=== PATIENT | female | born 1990 | race Caucasian/White ===

== ENCOUNTER 2020-12-26 08:37 | Observation (INO) ==
--- NOTE | 2020-12-26 08:59 | Emergency Department Note ---
Impression & Plan Right flank pain, Hydronephrosis ED Provider Note NAME: DAVE MUJICA AGE: 30 SEX: F : 1990 ARRIVES VIA: Walk-In INFORMANT: Patient, ED PROVIDER(S): Lopez Bhandari MD Chief Complaint: Abdominal pain, nausea vomiting HPI: Patient is a -0-2-0 at 18 weeks who presents due to concern for flank pain. The patient was recently seen on December 24 for similar symptoms. Patient had stable vitals at that time. Patient had normal white count hemoglobin and platelet count. Kidney function was unremarkable. The patient's LFTs and lipase unremarkable. The patient's urinalysis negative for blood or infection. Patient did have a limited ultrasound which did show a single live IUP. No placental abnormalities identified at that time. The patient did also have a renal ultrasound which showed no evidence of hydronephrosis. Bilateral ureteral jets were visualized at that time. Patient states that since this began she has had worsening right-sided flank discomfort. The patient states that she lifted a heavy cup of ice several days ago. The patient denies any trauma to the area. Patient denies any vaginal bleeding or discharge. The patient has felt movement. The patient denies any dysuria, hematuria or blood in the stools. The patient has had a recent bowel movement. The patient has a history of prior appendectomy but still has her gallbladder. The patient has had vomiting x10 this morning. Patient does take a baby aspirin for prophylaxis as the patient has had 2 miscarriages and believes that she did have a negative hypercoagulable work-up in the past. ROS: See HPI for pertinent positives and negatives. A total of 10 systems were reviewed and otherwise negative. Past medical history: See below Surgical history: See below Social history: See below Physical Exam: GENERAL: Wearing glasses and a mask. NAD, non-toxic. EYE EXAM: Normal conjunctiva. PERRL, no anisocoria and EOM's grossly intact w/o pain. NECK: Supple, no nuchal rigidity, no adenopathy, non-tender. No signs of meningismus. LUNGS: Clear to auscultation. Normal chest wall mechanics. HEART: NSR, no MRG. ABDOMEN: Abdomen soft, non-tender, normo-active bowel sounds, no masses, no rebound or guarding. BACK: Right-sided CVA TTP. SKIN: No rashes and no bruising. UPPER EXTREMITIES: Upper extremities are grossly normal. LOWER EXTREMITIES: Grossly normal, no edema. NEURO EXAM: A&O x3, cranial nerves II-XII grossly intact, normal speech, moves all 4 extremities on command w/o issue. Differential diagnoses: Renal colic, UTI, appendicitis, diverticulitis, mesenteric ischemia, aortic pathology, infections, inflammatory bowel disease, PUD, biliary pathology, as well as other pathologies. Course: Patient was seen and evaluated the bedside. Full history physical exam was performed. Imaging Studies: See below Cardiac monitoring: An order was placed for continuous cardiac monitoring. The monitor shows a rate of 93 with sinus rhythm. Procedures: Limited Point of Care OB Ultrasound performed by me: Indication: Flank pain Findings: Limited transabdominal study shows a viable IUP with a HR of 130s and positive movement. Likely transverse lie of the fetus. Placenta appears on the posterior aspect of the uterus. Impression: Age expected findings. MDM: Patient did present with concern for worsening flank pain. The patient did have bladder completed along with a collateral ultrasound. The patient does have an increase in white count to 16 with a left shift. The patient's kidney function is unremarkable. Urinalysis does show blood with whites and bacteria but does have numerous numerous epithelial cells. The patient was in such significant rate discomfort she did require narcotic medication. Given this with the associated gallbladder ultrasound which only showed gallbladder polyps without stones but did show right-sided renal fullness I did discuss getting a CAT scan of the abdomen pelvis with the patient. The patient is amenable to getting the CAT scan. Patient did receive Rocephin given that she is tracely positive on her UA but the patient does have numerous skin cells. The patient's CT abdomen pelvis does show some hydronephrosis likely secondary to her her gravid uterus. No obvious ureteral stones. Patient was given several rounds of additional pain medication. The patient does have an oxy allergy and is unable to take medications beyond lidocaine patch and Tylenol at home. NSAIDs contraindicated in . Given this and the patient's persistent pain believe the patient would benefit from observation and pain control. I did speak with Dr. Childers with [facility] and the patient was admitted due to intractable flank pain. Past Med/Surg History Medical History Infertility Surgical History History of appendectomy History of D&C History of tonsillectomy Family History Other No family history of adverse response to anesthesia Social History Smoking Status: Never smoker Second Hand Exposure: No; Hx Alcohol Use: No Hx Substance Use: No Preferred Language: Latvian Communication Ability: Effective Industrial Economist Required: No Beliefs That Will Affect Care: None Current Living Situation: Spouse Feels Safe at Home: Yes Assistive Devices: Contacts Allergies Allergies Allergy/AdvReac Type Severity Reaction Status Date / Time latex Allergy Intermediate Hives Verified 12/26/20 10:03 oxycodone [From Percocet] Allergy Intermediate Hives Verified 12/26/20 10:03 nickel Allergy Mild Rash Verified 12/26/20 10:03 Home Meds Home Medications Medication Instructions Recorded Confirmed PNV,calcium 28-igzn-maihz acid 1 tab PO DAILY 10/11/20 12/26/20 [M-Rosy Plus] aspirin [Aspir-Low] 81 mg PO DAILY 10/11/20 12/26/20 Results & Data (ED) Vital Signs Vital Signs - 24 hr 12/26/20 08:45 12/26/20 10:54 12/26/20 12:00 Temperature 36.5 C Temperature Source Temporal Artery Scan Pulse Rate 93 H Pulse Rate [Finger] 90 82 Respiratory Rate 18 16 16 Respiratory Effort / Characteristics Non-Labored Respiratory Depth Normal Blood Pressure 112/68 Blood Pressure [Right Arm] 116/66 119/60 Blood Pressure Mean 82 Blood Pressure Mean [Right Arm] 82 79 Blood Pressure Position Sitting Blood Pressure Position [Right Arm] Sitting Sitting Pulse Oximetry 99 100 100 Oxygen Delivery Method Room Air Room Air Room Air Sepsis Recent Fever Within 48 Hours No Sepsis New/Unexplained Change in Mental Status No Sepsis Action Taken by Nursing No Action Required Home Medications Current Medication List: was personally reviewed by me Laboratory Data Attestation: I reviewed the patient's lab results. Result diagrams: 12/26/20 09:05 12/26/20 09:05 Lab Results 12/26/20 12/26/20 12/26/20 Range/Units 09:05 09:05 09:05 WBC 15.98 H (4.8-10.8) K/uL RBC 4.29 (4.2-5.4) M/uL Hgb 13.8 (12.0-16.0) g/dL Hct 40.1 (37-47) % MCV 93.5 (80-100) fL MCH 32.2 (25-34) pg MCHC 34.4 (32-36) g/dL RDW Std Deviation 43.0 (36.4-46.3) fL RDW Coeff of Thea 12.7 (11.5-14.5) % Plt Count 252 (130-400) K/uL MPV 9.2 (7.4-10.4) fL Immature Gran % (Auto) 0.3 % Neut % (Auto) 90.8 % Lymph % (Auto) 5.9 % [place] % (Auto) 3.0 % Eos % (Auto) 0.0 % Baso % (Auto) 0.0 % Neut # (Auto) 14.51 H (1.4-6.5) K/uL Lymph # (Auto) 0.95 L (1.2-3.4) K/uL [place] # (Auto) 0.48 (0.11-0.59) K/uL Eos # (Auto) 0.00 (0-0.5) K/uL Baso # (Auto) 0.00 (0-0.2) K/uL Immature Gran # (Auto) 0.04 H (0.00-0.02) K/uL Sodium 137 (136-145) mmol/L Potassium 3.7 (3.5-5.1) mmol/L Chloride 106 (98-107) mmol/L Carbon Dioxide 26 (21-32) mmol/L Anion Gap 5.0 (3-11) BUN 10 (7-18) mg/dl Creatinine 0.51 L (0.6-1.2) mg/dl Est Cr Clr Drug Dosing 152.7 ml/min Est GFR ( Amer) 149.6 ml/min Est GFR (Non-Af Amer) 129.0 ml/min BUN/Creatinine Ratio 19.3 (10-20) Glucose 98 (70-99) mg/dl Calcium 9.2 (8.5-10.1) mg/dl Magnesium 1.9 (1.8-2.4) mg/dl Total Bilirubin 0.3 (0.2-1) mg/dl AST 16 (15-37) U/L ALT 22 (12-78) U/L Alkaline Phosphatase 37 L (45-117) U/L Total Protein 7.1 (6.4-8.2) gm/dl Albumin 3.4 (3.4-5.0) gm/dl Globulin 3.7 (2.5-4.0) gm/dl Albumin/Globulin Ratio 0.9 (0.9-2) Lipase 96 (73-393) U/L Urine Color Yellow Urine Appearance Clear (Clear) Urine pH 5.5 (4.5-7.5) Ur Specific [place] 1.016 (1.000-1.030) Urine Protein Negative (Negative) Urine Glucose (UA) Negative (Negative) Urine Ketones Trace H (Negative) Urine Blood Trace H (Negative) Urine Nitrite Negative (Negative) Urine Bilirubin Negative (Negative) Urine Urobilinogen Negative (Negative) Ur Leukocyte Esterase Negative (Negative) Urine WBC (Auto) 5-10 H (0-5) /hpf Urine RBC (Auto) 0-4 (0-4) /hpf U Hyaline Cast (Auto) 1-5 (0-5) /lpf U Epithel Cells (Auto) >30 H (0-5) /lpf Urine Bacteria (Auto) 1+ H (Negative) Administered Medications Sodium Chloride (Nss 1000ml) 500 mls @ 999 mls/hr IV .Q31M ONE Stop: 12/26/20 13:04 Last Admin: 12/26/20 12:41 Dose: 999 mls/hr Documented by: [id number] Discontinued Medications Fentanyl Citrate (Fentanyl Citrate 100 Mcg/2 Ml Vial) 50 mcg IV NOW STA Stop: 12/26/20 09:58 Last Admin: 12/26/20 10:00 Dose: 50 mcg Documented by: [id number] Fentanyl Citrate (Fentanyl Citrate 100 Mcg/2 Ml Vial) 50 mcg IV NOW STA Stop: 12/26/20 11:03 Last Admin: 12/26/20 11:09 Dose: 50 mcg Documented by: [id number] Fentanyl Citrate (Fentanyl Citrate 100 Mcg/2 Ml Vial) 50 mcg IV NOW STA Stop: 12/26/20 11:47 Last Admin: 12/26/20 11:55 Dose: 50 mcg Documented by: [id number] Fentanyl Citrate (Fentanyl Citrate 100 Mcg/2 Ml Vial) 75 mcg IV NOW STA Stop: 12/26/20 12:37 Last Admin: 12/26/20 12:40 Dose: 75 mcg Documented by: [id number] Sodium Chloride (Nss 1000ml) 1,000 mls @ 999 mls/hr IV .Q1H1M STA Stop: 12/26/20 10:08 Last Infusion: 12/26/20 10:16 Dose: 0 mls/hr Documented by: [id number] Admin: 12/26/20 09:15 Dose: 999 mls/hr Documented by: [id number] Acetaminophen (Ofirmev) 1,000 mg in 100 mls @ 400 mls/hr IV NOW STA Stop: 12/26/20 09:22 Last Infusion: 12/26/20 09:31 Dose: 0 mls/hr Documented by: [id number] Admin: 12/26/20 09:15 Dose: 400 mls/hr Documented by: [id number] Ceftriaxone Sodium (Rocephin) 2,000 mg in 70 mls @ 140 mls/hr IV NOW STA Stop: 12/26/20 11:21 Last Infusion: 12/26/20 11:39 Dose: 0 mls/hr Documented by: [id number] Admin: 12/26/20 11:09 Dose: 140 mls/hr Documented by: [id number] Ioversol (Optiray 320 150ml) 90 ml IV ONCE ONE Stop: 12/26/20 10:20 Last Admin: 12/26/20 10:22 Dose: 90 ml Documented by: [id number] Lidocaine (Lidocaine 5% 1 Patch) 1 patch TD NOW STA Stop: 12/26/20 10:58 Last Admin: 12/26/20 11:09 Dose: 1 patch Documented by: [id number] Ondansetron HCl (Ondansetron Inj 2 Mg/Ml 2 Ml Vial) 4 mg IV NOW STA Stop: 12/26/20 09:09 Last Admin: 12/26/20 09:15 Dose: 4 mg Documented by: [id number] Imaging Data Radiologist's Impression: Gallbladder Ultrasound 12/26/20 09:08 US gallbladder CLINICAL HISTORY: Right-sided abdominal pain COMPARISON STUDY: CT scan dated 03/11/2016, renal ultrasound dated 12/24/2020 FINDINGS: The pancreas appears sonographically normal. The liver appears sonographically normal. No shadowing gallbladder calculi are visualized. There are 2 echogenic nonmobile nonshadowing foci within the gallbladder likely representing polyps. The common bile duct measures 5 mm. There is mild fullness the right renal collecting system. There is borderline increased renal cortical echogenicity. IMPRESSION: 1. 2 small gallbladder polyps are suspected, the largest of which measures 5 mm 2. Ultrasonographically normal liver and pancreas. No ductal dilatation. 3. Mild fullness of the right renal collecting system. ACT 112: Negative or not required by law. Electronically signed by: Robin Gaxiola M.D. 12/26/2020 10:01 AM Abdomen/Pelvis CT 12/26/20 10:[address] WITH IV CONTRAST CT DOSE: 495.05 mGycm HISTORY: Acute right-sided flank pain with leukocytosis and . R flank pain, , WBC 16 TECHNIQUE: Multiaxial CT images of the abdomen and pelvis were performed following the IV administration of 90 cc of Optiray, A dose lowering technique was utilized adhering to the principles of ALARA. COMPARISON STUDY: Right upper quadrant abdominal ultrasound of same day, CT abdomen and pelvis 03/11/2016 FINDINGS: Clear lung bases. Trace pleural effusions. There is no pneumatosis or pneumoperitoneum. 1.3 cm benign-appearing cyst of the inferior spleen has decreased in size from comparison. Unremarkable pancreas, adrenal glands, gallbladder and liver. Patency of the hepatic and portal veins. Unremarkable left kidney. Slightly delayed right-sided nephrogram with mild to moderate hydroureteronephrosis. Mild perinephric and periureteral stranding. No renal or ureteral calculi identified. There is narrowing of the right ureter as it crosses between the right external iliac artery and the enlarged gravid uterus, image 263. The ureter distal to this site appears normal in caliber. Posterior positioning of the placenta. Breech positioning of the intrauterine fetus. Gravid uterus, mass effect upon the urinary bladder. No adnexal mass lesion. Aorta and IVC are unremarkable. There is no adenopathy. No bowel obstruction or bowel wall thickening. Appendectomy. Unremarkable soft tissues and breast parenchyma. No acute fracture. IMPRESSION: 1. Mild to moderate right-sided hydroureteronephrosis with delayed nephrogram likely secondary to mass effect of the enlarged gravid uterus. The right ureter is narrowed as it courses between the uterus and proximal right external iliac artery. Findings should be correlated with urinalysis to exclude infection. 2. No renal or ureteral calculi identified. 3. No bowel obstruction or bowel wall thickening. 4. Trace pleural effusions. 5. Appendectomy. ACT 112: Negative or not required by law. The above report was generated using voice recognition software. It may contain grammatical, syntax or spelling errors. Electronically signed by: Yuri Oconnor M.D. 12/26/2020 10:49 AM Discharge Plan Visit Data Chief Complaint: Flank Pain Stated Complaint: 18 WEEKS , R FLANK PAIN, ABDOMINAL PAIN ED Provider: Lopez Bhandari Discharge Problem: Right flank pain, Hydronephrosis Forms Stand Alone Forms: [facility] [place] Prescriptions Prescriptions: No Action aspirin [Aspir-Low] 81 mg Tablet,Delayed Release (Dr/Ec) 81 mg PO DAILY RF: 0 M-Rosy Plus 27 mg iron- 1 mg tablet 1 tab PO DAILY RF: 0 Discharge Problem: Hydronephrosis Qualifiers: Hydronephrosis type: unspecified Qualified Code(s): N13.30 - Unspecified hydronephrosis
[2020-12-26] MEDS ORDERED: ONDANSETRON INJ 2 MG/ML 2 ML VIAL IV STA (09:08)
[2020-12-26] MEDS ORDERED: SODIUM CHLORIDE 0.9% 1000ML 1,000 ML IV STA (09:08)
[2020-12-26] MEDS ORDERED: ACETAMINOPHEN 1,000 MG/100 ML VIAL IV STA (09:08)
[2020-12-26 09:19] LABS: Hematocrit (blood only) 40.1 % (37-47); Hemoglobin 13.8 g/dL (12.0-16.0); Immature Granulocytes # (auto) 0.04 K/uL (0.00-0.02); Immature Granulocytes % (auto) 0.3 %; Lymphocytes # (auto) 0.95 K/uL (1.2-3.4); Lymphocytes % (auto) 5.9 %; Mean Corpuscular Hemoglobin 32.2 pg (25-34); Mean Corpuscular Hgb Conc 34.4 g/dL (32-36); Mean Corpuscular Volume 93.5 fL (80-100); Mean Platelet Volume 9.2 fL (7.4-10.4); Monocytes # (auto) 0.48 K/uL (0.11-0.59); Neutrophils # (auto) 14.51 K/uL (1.4-6.5); Neutrophils % (auto) 90.8 %; Platelet Count 252 K/uL (130-400); RDW Coefficient of Variation 12.7 % (11.5-14.5); Red Blood Count 4.29 M/uL (4.2-5.4); White Blood Count 15.98 K/uL (4.8-10.8)
[2020-12-26 09:21] LABS: Appearance Urine Clear (Clear); Bacteria Urine Automated 1+ (Negative); Bilirubin Urine Negative (Negative); Blood Urine Trace (Negative); Color Urine Yellow; Epithelial Cell Urine Auto >30 /lpf (0-5); Glucose Urine UA Negative (Negative); Ketones Urine Trace (Negative); Leukocyte Esterase Urine Negative (Negative); Nitrite Urine Negative (Negative); Protein Urine Negative (Negative); RBC Urine Automated 0-4 /hpf (0-4); Specific Gravity Urine 1.016 (1.000-1.030); Urobilinogen Urine Negative (Negative); pH Urine 5.5 (4.5-7.5)
[2020-12-26 09:38] LABS: Albumin Level 3.4 gm/dl (3.4-5.0); BUN Creatinine Ratio 19.3 (10-20); Calcium 9.2 mg/dl (8.5-10.1); Creatinine Clr Calc Pharmacy 152.7 ml/min; Est GFR (African American) 149.6 ml/min; Magnesium 1.9 mg/dl (1.8-2.4); Potassium 3.7 mmol/L (3.5-5.1)
[2020-12-26 09:41] LABS: Albumin Globulin Ratio 0.9 (0.9-2); Bilirubin,Total 0.3 mg/dl (0.2-1); Globulin 3.7 gm/dl (2.5-4.0); Total Protein 7.1 gm/dl (6.4-8.2)
[2020-12-26] MEDS ORDERED: fentaNYL citrate 100 MCG/2 ML VIAL IV STA ×4 (09:57→12:36)
--- NOTE | 2020-12-26 10:02 | Ultrasound Report ---
US gallbladder CLINICAL HISTORY: Right-sided abdominal pain COMPARISON STUDY: CT scan dated 03/11/2016, renal ultrasound dated 12/24/2020 FINDINGS: The pancreas appears sonographically normal. The liver appears sonographically normal. No s hadowing gallbladder calculi are visualized. There are 2 echogenic nonmobile nonshadowing foci within the gallbladder likely representing polyps. The common bile duct measures 5 mm. There is mild fullness the right renal collecting system. There is borderline increased renal cortica l echogenicity. IMPRESSION: 1. 2 small gallbladder polyps are suspected, the largest of which measures 5 mm 2. Ultrasonographically normal liver and pancreas. No ductal dilatation. 3. Mild fullness of the right renal collecting system. ACT 112: Negative or not required by law. Electronically signed by: Robin Gaxiola M.D. 12/26/2020 10:01 AM
[2020-12-26] MEDS ORDERED: OPTIRAY 320 150ml IV ONE (10:19)
--- NOTE | 2020-12-26 10:50 | CT Scan Report ---
ABDOMEN AND PELVIS CT WITH IV CONTRAST CT DOSE: 495.05 mGycm HISTORY: Acute right-sided flank pain with leukocytosis and . R flank pain, , WBC 1 6 TECHNIQUE: Multiaxial CT images of the abdomen and pelvis were performed following the IV administrat ion of 90 cc of Optiray, A dose lowering technique was utilized adhering to the principles of ALARA. COMPARISON STUDY: Right upper quadrant abdominal ultrasound of same day, CT abdomen and pelvis 016 FINDINGS: Clear lung bases. Trace pleural effusions. There is no pneumatosis or pneumoperitoneum. 1.3 cm benign-appearing cyst of the inferior spleen has decreased in size from comparison. Unremarkable pancreas, adrenal glands, gallbladder and liver. Patency of the hepatic and portal veins. Unremarkable left kidney. Slightly delayed right-sided nephrogram with mild to moderate hydroureteron ephrosis. Mild perinephric and periureteral stranding. No renal or ureteral calculi identified. There is narrowing of the right ureter as it crosses between the right external iliac artery and the enlar ged gravid uterus, image 263. The ureter distal to this site appears normal in caliber. Posterior pos itioning of the placenta. Breech positioning of the intrauterine fetus. Gravid uterus, mass effect up on the urinary bladder. No adnexal mass lesion. Aorta and IVC are unremarkable. There is no adenopath y. No bowel obstruction or bowel wall thickening. Appendectomy. Unremarkable soft tissues and breast par enchyma. No acute fracture. IMPRESSION: 1. Mild to moderate right-sided hydroureteronephrosis with delayed nephrogram likely secondary to mas s effect of the enlarged gravid uterus. The right ureter is narrowed as it courses between the uterus and proximal right external iliac artery. Findings should be correlated with urinalysis to exclude i nfection. 2. No renal or ureteral calculi identified. 3. No bowel obstruction or bowel wall thickening. 4. Trace pleural effusions. 5. Appendectomy. ACT 112: Negative or not required by law. The above report was generated using voice recognition software. It may contain grammatical, syntax o r spelling errors. Electronically signed by: Yuri Oconnor M.D. 12/26/2020 10:49 AM
[2020-12-26] MEDS ORDERED: cefTRIAXone SODIUM 2,000 MG/70 ML BAG IV STA (10:52)
[2020-12-26] MEDS ORDERED: LIDOCAINE 5% 1 PATCH TD STA (10:57)
[2020-12-26] MEDS ORDERED: SODIUM CHLORIDE 0.9% 1000ML 500 ML IV ONE (12:34)
[2020-12-26] MEDS: MoRPHine SULFATE 2 MG/ML CARP IV PRN ×2 (16:09→17:44)
[2020-12-26] MEDS: LACTATED RINGER'S 1,000 ML IV PRN (16:12)
--- NOTE | 2020-12-26 16:15 | History & Physical Report ---
Date of Service December 26, 2020 Assessment & Plan (1) Right flank pain: (2) Currently : (3) Hydronephrosis: Admission and Anticipated Discharge Date Admission Date: December 26, 2020 History of Present Illness Chief Complaint: right flank pasin Primary Care Provider: JOSE PCP 30 F P0020 at 18 weeks presents to the ER for the second time in 2 days with right sided flank pain accompanied by nausea and vomiting. She states pain started Thursday after lifting heavy load of ice. She denies any urinary symptoms. No frequency, hematuria or dysuria. No history of kidney stones or gallstones. No vaginal bleeding or cramps. No problems with the to date. She had workup [address] and ultrasound of GB and . Some mild right sided hydronephrosis is noted. Allergies Allergy/AdvReac Type Severity Reaction Status Date / Time latex Allergy Intermediate Hives Verified 12/26/20 16:14 oxycodone [From Percocet] Allergy Intermediate Hives Verified 12/26/20 16:14 nickel Allergy Mild Rash Verified 12/26/20 16:14 Home Medications Medication Instructions Recorded Confirmed Type PNV,calcium 39-avbs-gksxl acid 1 tab PO DAILY 10/11/20 12/26/20 History [M- Plus] aspirin [Aspir-Low] 81 mg PO DAILY 10/11/20 12/26/20 History Patient History Medical History Infertility Surgical History History of appendectomy History of D&C History of tonsillectomy Family History Other No family history of adverse response to anesthesia Social History Smoking Status: Never smoker Second Hand Exposure: No; Hx Alcohol Use: No Hx Substance Use: No Preferred Language: Hungarian Communication Ability: Effective Grid Inspector Required: No Beliefs That Will Affect Care: None Current Living Situation: Spouse Feels Safe at Home: Yes Assistive Devices: Contacts OB History 2 prior miscarriages. Patient is on ASA 81 mg daily Review of Systems All systems reviewed & are unremarkable except as noted in HPI & below Physical Exam Constitutional: WD/WN, vitals as above well nourished, + acute distress and average body habitus Eyes: PERRL, conjunctivae normal, anicteric sclerae ENMT: external ear and nose normal, oropharynx normal Respiratory: normal respiratory effort Cardiovascular: RRR, no murmur, no edema Rate/Rhythm: regular rate Gastrointestinal (Abdomen): Inspection/Auscultation: abdomen normal to inspection Percussion/Palpation: abdomen soft Skin: no rashes, warm and dry Neurologic: patellar DTR's 2+ bilat, sensation intact Psychiatric: A+Ox3, euthymic affect Genitourinary: OB Exam Abdomen: + heart tones Results & Data ([facility]) Vital Signs (Past 12 Hours) Vital Signs Temp Pulse Pulse Resp BP BP Pulse Ox 12/26/20 15:33 89 16 119/68 98 12/26/20 14:51 79 16 117/69 100 12/26/20 12:45 86 16 99 12/26/20 12:00 82 16 119/60 100 12/26/20 10:54 90 16 116/66 100 12/26/20 08:45 36.5 C 93 H 18 112/68 99 Laboratory Results Laboratory Results - last 72 hr 12/26/20 12/26/20 12/26/20 09:05 09:05 09:05 WBC 15.98 H RBC 4.29 Hgb 13.8 Hct 40.1 MCV 93.5 MCH 32.2 MCHC 34.4 RDW Std Deviation 43.0 RDW Coeff of Thea 12.7 Plt Count 252 MPV 9.2 Immature Gran % (Auto) 0.3 Neut % (Auto) 90.8 Lymph % (Auto) 5.9 [place] % (Auto) 3.0 Eos % (Auto) 0.0 Baso % (Auto) 0.0 Neut # (Auto) 14.51 H Lymph # (Auto) 0.95 L [place] # (Auto) 0.48 Eos # (Auto) 0.00 Baso # (Auto) 0.00 Immature Gran # (Auto) 0.04 H Sodium 137 Potassium 3.7 Chloride 106 Carbon Dioxide 26 Anion Gap 5.0 BUN 10 Creatinine 0.51 L Est Cr Clr Drug Dosing 152.7 Est GFR ( Amer) 149.6 Est GFR (Non-Af Amer) 129.0 BUN/Creatinine Ratio 19.3 Glucose 98 Calcium 9.2 Magnesium 1.9 Total Bilirubin 0.3 AST 16 ALT 22 Alkaline Phosphatase 37 L Total Protein 7.1 Albumin 3.4 Globulin 3.7 Albumin/Globulin Ratio 0.9 Lipase 96 Urine Color Yellow Urine Appearance Clear Urine pH 5.5 Ur Specific [place] 1.016 Urine Protein Negative Urine Glucose (UA) Negative Urine Ketones Trace H Urine Blood Trace H Urine Nitrite Negative Urine Bilirubin Negative Urine Urobilinogen Negative Ur Leukocyte Esterase Negative Urine WBC (Auto) 5-10 H Urine RBC (Auto) 0-4 U Hyaline Cast (Auto) 1-5 U Epithel Cells (Auto) >30 H Urine Bacteria (Auto) 1+ H COVID-19 Eval Order SARS-CoV-2 (PCR) 12/26/20 12/26/20 13:28 13:28 WBC RBC Hgb Hct MCV MCH MCHC RDW Std Deviation RDW Coeff of Thea Plt Count MPV Immature Gran % (Auto) Neut % (Auto) Lymph % (Auto) [place] % (Auto) Eos % (Auto) Baso % (Auto) Neut # (Auto) Lymph # (Auto) [place] # (Auto) Eos # (Auto) Baso # (Auto) Immature Gran # (Auto) Sodium Potassium Chloride Carbon Dioxide Anion Gap BUN Creatinine Est Cr Clr Drug Dosing Est GFR ( Amer) Est GFR (Non-Af Amer) BUN/Creatinine Ratio Glucose Calcium Magnesium Total Bilirubin AST ALT Alkaline Phosphatase Total Protein Albumin Globulin Albumin/Globulin Ratio Lipase Urine Color Urine Appearance Urine pH Ur Specific [place] Urine Protein Urine Glucose (UA) Urine Ketones Urine Blood Urine Nitrite Urine Bilirubin Urine Urobilinogen Ur Leukocyte Esterase Urine WBC (Auto) Urine RBC (Auto) U Hyaline Cast (Auto) U Epithel Cells (Auto) Urine Bacteria (Auto) COVID-19 Eval Order Covid19 at [facility] SARS-CoV-2 (PCR) NEGATIVE Code Status & VTE Plan VTE Prophylaxis Plan VTE Prophylaxis will be ordered: No Monitoring External Monitor ultrasound confirms viability (1) Currently Weeks of gestation: 14 weeks Qualified Code(s): Z3A.14 - 14 weeks gestation of (2) Hydronephrosis Hydronephrosis type: unspecified Qualified Code(s): N13.30 - Unspecified hydronephrosis
[2020-12-26] MEDS: ACETAMINOPHEN 1,000 MG/100 ML VIAL IV PRN (17:04)
[2020-12-26] MEDS ORDERED: MoRPHine SULFATE 2 MG/ML CARP IV STA (17:59)
[2020-12-26] MEDS ORDERED: NALOXONE HCL 0.4 MG/1 ML VIAL/CARP IV PRN (18:20)
[2020-12-26] MEDS: AMPICILLIN 2,000 MG in SODIUM CHLOR 0.9% AD-VAN 100 ML IV SCH (18:20)
[2020-12-26 18:27] LABS: Appearance Urine Clear (Clear); Bacteria Urine Automated Negative (Negative); Bilirubin Urine Negative (Negative); Blood Urine 2+ (Negative); Color Urine Yellow; Epithelial Cell Urine Auto >30 /lpf (0-5); Glucose Urine UA Negative (Negative); Ketones Urine 4+ (Negative); Leukocyte Esterase Urine Negative (Negative); Nitrite Urine Negative (Negative); Protein Urine Negative (Negative); Specific Gravity Urine 1.015 (1.000-1.030); Urobilinogen Urine Negative (Negative)
[2020-12-26] MEDS ORDERED: MoRPHine SULFATE PCA 30 MG/30 ML IV SCH (18:30)
[2020-12-26] MEDS ORDERED: SODIUM CHLORIDE 0.9% 1000ML 1,000 ML IV SCH (18:30)
[2020-12-26 18:39] LABS: Cast Urine Automated 0 /lpf (0-5); Renal Epithelial Cells Urine 0-5 /lpf (0-5)
--- NOTE | 2020-12-26 19:23 | History and Physical Report ---
DATE OF ADMISSION: 12/26/2020 CHIEF COMPLAINT: Right-sided flank pain, intrauterine 19 weeks' gestation. HISTORY OF PRESENT ILLNESS: The patient is a 30-year-old 3, para 0. She has had 2 spontaneous ABs. She is in good general health. She is presently on vitamins and baby aspirin, which she has taken earlier in her to prevent miscarriage. STATES SHE IS ALLERGIC TO PERCOCET, WHICH GIVES HER A RASH AND SHE ALSO STATES SHE IS ALLERGIC TO LATEX. She was doing well until Sunday 12/24 where she showed up with some mild right-sided flank pain. She had no loss of appetite. She was seen in the Emergency Room. She was ultrasounded and she was basically told that there was no significant problem and was sent home, then over the ensuing days, her pain began to worsen. Finally, the night prior to admission, she was unable to sleep and she started having some vomiting with the pain. She was seen in the Emergency Room. White cell count and CAT scan were done. CAT scan was unremarkable. White cell count was 15,000. ALLERGIES: PERCOCET AND LATEX. PAST SURGICAL HISTORY: Status post appendectomy, status post wisdom teeth removal, status post D and C. SOCIAL HISTORY: No smoking, no alcohol intake. Works at the [employer]. FAMILY HISTORY: Mom is 52, in good health. Father 52, in good health. Two brothers and one sister in good health. REVIEW OF SYSTEMS: HEAD: No symptoms of frequent or severe headaches. EYES: No symptoms of blurred vision or double vision. EARS: No symptoms of frequent ear infections. PHYSICAL EXAMINATION: GENERAL: A well-developed, well-nourished 30-year-old white female in a fair amount of distress. EYES: Conjunctivae are pink. Sclerae white, no evidence of jaundice. HEART: Had regular rhythm. LUNGS: Clear to auscultation and percussion. NECK: Supple. Trachea midline. Thyroid is not enlarged. FLANKS: She had acute right-sided flank pain. She did not have any uterine or suprapubic pain. MUSCULOSKELETAL: No calf tenderness. IMPRESSIONS OF THIS CASE: Status post appendectomy, status post dilatation and curettage, status post wisdom teeth removal, intrauterine , 19 weeks' gestation, suspected acute pyelonephritis.
[2020-12-26] MEDS: MoRPHine SULFATE PCA 30 MG/30 ML IV PRN (19:30)
[2020-12-26] MEDS: ONDANSETRON INJ 2 MG/ML 2 ML VIAL IV PRN (21:46)
[2020-12-27] MEDS: AMPICILLIN 2,000 MG in SODIUM CHLOR 0.9% AD-VAN 100 ML IV SCH ×4 (00:23→18:13)
[2020-12-27] MEDS: ACETAMINOPHEN 1,000 MG/100 ML VIAL IV PRN ×3 (01:03→23:47)
[2020-12-27] MEDS: LACTATED RINGER'S 1,000 ML IV PRN ×3 (01:07→18:54)
[2020-12-27] MEDS: MoRPHine SULFATE PCA 30 MG/30 ML IV PRN ×2 (04:12→16:11)
[2020-12-27] MEDS: ONDANSETRON INJ 2 MG/ML 2 ML VIAL IV PRN ×2 (07:22→16:22)
--- NOTE | 2020-12-27 09:36 | Obstetrical Progress Note ---
Date of Service December 27, 2020 Assessment & Plan Admission and Anticipated Discharge Date Admission Date: December 26, 2020 Physical Exam Physical Exam: abdomen soft and non tender no calf tenderness pain has decreased patient still has dysuria will repeat cbc and diff Results & Data ([facility]) Vital Signs (Past 12 Hours) Vital Signs Temp Pulse Pulse Resp BP Pulse Ox 12/27/20 07:25 36.4 C L 81 15 102/61 97 12/27/20 04:10 36.5 C 88 15 109/63 96 12/26/20 23:05 36.7 C 80 18 110/68 97 12/26/20 22:00 36.9 C 86 14 112/69 97
[2020-12-27] MEDS: diphenhydrAMINE 50 MG/ML VIAL IV PRN ×2 (10:15→18:18)
[2020-12-27 10:36] LABS: Basophils # (auto) 0.01 K/uL (0-0.2); Basophils % (auto) 0.1 %; Eosinophils # (auto) 0.01 K/uL (0-0.5); Eosinophils % (auto) 0.1 %; Hematocrit (blood only) 31.8 % (37-47); Hemoglobin 10.7 g/dL (12.0-16.0); Immature Granulocytes # (auto) 0.04 K/uL (0.00-0.02); Immature Granulocytes % (auto) 0.4 %; Lymphocytes # (auto) 1.18 K/uL (1.2-3.4); Lymphocytes % (auto) 10.4 %; Mean Corpuscular Hgb Conc 33.6 g/dL (32-36); Mean Corpuscular Volume 95.2 fL (80-100); Monocytes # (auto) 0.72 K/uL (0.11-0.59); Monocytes % (auto) 6.3 %; Neutrophils # (auto) 9.41 K/uL (1.4-6.5); Neutrophils % (auto) 82.7 %; Platelet Count 196 K/uL (130-400); RDW Coefficient of Variation 12.9 % (11.5-14.5); RDW Standard Deviation 44.8 fL (36.4-46.3); Red Blood Count 3.34 M/uL (4.2-5.4); White Blood Count 11.37 K/uL (4.8-10.8)
[2020-12-28] MEDS: AMPICILLIN 2,000 MG in SODIUM CHLOR 0.9% AD-VAN 100 ML IV SCH ×5 (00:17→23:45)
[2020-12-28] MEDS: LACTATED RINGER'S 1,000 ML IV PRN ×3 (03:11→19:53)
[2020-12-28] MEDS: diphenhydrAMINE 50 MG/ML VIAL IV PRN (06:34)
[2020-12-28] MEDS: MoRPHine SULFATE PCA 30 MG/30 ML IV PRN (07:04)
[2020-12-28] MEDS: ACETAMINOPHEN 1,000 MG/100 ML VIAL IV PRN (07:52)
--- NOTE | 2020-12-28 08:52 | Obstetrical Progress Note ---
Date of Service December 28, 2020 Assessment & Plan Admission and Anticipated Discharge Date Admission Date: December 26, 2020 Physical Exam Physical Exam: patient still has right flank pain no calf tenderness limited ambulation Results & Data ([facility]) Vital Signs (Past 12 Hours) Vital Signs Temp Pulse Resp BP Pulse Ox 12/28/20 07:50 36.7 C 86 18 111/67 96 12/28/20 03:10 36.9 C 90 18 101/62 95 12/28/20 00:00 36.8 C 93 H 20 108/67 97
[2020-12-28 09:17] LABS: Basophils # (auto) 0.01 K/uL (0-0.2); Basophils % (auto) 0.1 %; Eosinophils # (auto) 0.02 K/uL (0-0.5); Eosinophils % (auto) 0.2 %; Hematocrit (blood only) 30.1 % (37-47); Hemoglobin 10.1 g/dL (12.0-16.0); Immature Granulocytes # (auto) 0.03 K/uL (0.00-0.02); Immature Granulocytes % (auto) 0.3 %; Lymphocytes # (auto) 1.18 K/uL (1.2-3.4); Lymphocytes % (auto) 12.6 %; Mean Corpuscular Hemoglobin 31.7 pg (25-34); Mean Corpuscular Hgb Conc 33.6 g/dL (32-36); Mean Corpuscular Volume 94.4 fL (80-100); Mean Platelet Volume 8.9 fL (7.4-10.4); Monocytes # (auto) 0.79 K/uL (0.11-0.59); Monocytes % (auto) 8.4 %; Neutrophils # (auto) 7.35 K/uL (1.4-6.5); Neutrophils % (auto) 78.4 %; Platelet Count 160 K/uL (130-400); RDW Standard Deviation 45.1 fL (36.4-46.3); Red Blood Count 3.19 M/uL (4.2-5.4); White Blood Count 9.38 K/uL (4.8-10.8)
[2020-12-28] MEDS: MAGNESIUM HYDROXIDE SUSP 30 ML UDC PO PRN ×3 (09:27→23:44)
[2020-12-28] MEDS: DOCUSATE SODIUM 100 MG CAP PO SCH ×2 (09:27→21:10)
[2020-12-28] MEDS: ASPIRIN 81 MG ECTAB PO SCH (09:27)
[2020-12-28] MEDS: PRENATAL VITAMIN 1 TAB PO SCH (09:27)
[2020-12-29] MEDS: LACTATED RINGER'S 1,000 ML IV PRN (03:40)
[2020-12-29] MEDS: MAGNESIUM HYDROXIDE SUSP 30 ML UDC PO PRN (06:00)
[2020-12-29] MEDS: AMPICILLIN 2,000 MG in SODIUM CHLOR 0.9% AD-VAN 100 ML IV SCH ×2 (06:01→11:21)
[2020-12-29] MEDS: ASPIRIN 81 MG ECTAB PO SCH (08:40)
[2020-12-29] MEDS: PRENATAL VITAMIN 1 TAB PO SCH (08:40)
[2020-12-29] MEDS: DOCUSATE SODIUM 100 MG CAP PO SCH (08:40)
--- NOTE | 2020-12-29 10:51 | Obstetrical Progress Note ---
Date of Service December 29, 2020 Assessment & Plan Admission and Anticipated Discharge Date Admission Date: December 28, 2020 Physical Exam Physical Exam: flank pain has resolved no calf tenderness ambulating well hgb 10.3 Results & Data ([facility]) Vital Signs (Past 12 Hours) Vital Signs Temp Pulse Pulse Resp BP Pulse Ox 12/29/20 07:45 36.8 C 86 18 111/69 96 12/29/20 03:40 36.7 C 78 16 108/68 95 12/28/20 23:50 36.7 C 83 17 106/68 97
--- NOTE | 2020-12-29 22:17 | Discharge Summary (DS) ---
Ms. Erickson is a patient of mine being followed for care and delivery. She is about 18 plus weeks gestation. She started having pain this Thursday. She was seen in the Emergency Room several times and sent home. She eventually had a CT scan done, ultrasound done, ultrasound was normal. Baby was appropriately grown. Cervix was long and closed. Ultrasound showed some hydronephrosis on the right side. Eventually, she was admitted with intractable excruciating pain. The first time I saw the patient, she was doubled over on the bed with the pain. We had to give her 2 mg of morphine and 1 gram of Tylenol, it did not touch it. We gave her 2 more morphine and then eventually put her on a morphine pump. I made a clinical diagnosis of right hydro because on admission she had exquisite right flank pain, you could hardly touch the area. I did a cath urine. This essentially failed to grow out anything. I did put her on 2 grams of ampicillin every 6 hours. It took several days for the pain to resolve. Along with the ampicillin and the morphine OUTREACH NURSE, she received an IV Tylenol and she was receiving IV fluids. Over the next several days, she started to use less and less pain meds and on the day of discharge, which was Thursday, she had not used any of the morphine. Her pain was well controlled. She had a regular diet. She had a good bowel movement. Her temperature was normal. She was ambulating well. She requested discharge. It should also be noted that on Thursday when she came into the Emergency Room, her white cell count was about 5000; when we admitted her, white cell count was 15,000; and on the day before we discharged her, it was down to 9000. She did remain afebrile throughout her hospital course. She was discharged with a prescription of Augmentin 875 twice a day and Tylenol No. 3 with Codeine 40 tablets to take 2 tablets every 8 hours p.r.n. for pain. She was also told to return to the office in a few days for a followup visit. CLARISSA
== END 2020-12-29 12:40 | disposition home or self-care (01) ==
LOC: 4N 08:37 → ED 08:37 → 4N 15:33

== ENCOUNTER 2021-05-07 14:19 | Inpatient (IN) ==
[2021-05-07] MEDS ORDERED: OXYTOCIN 30 UNITS/500 ML BAG IV PRN (20:38)
[2021-05-07 20:59] LABS: Mean Corpuscular Hgb Conc 33.9 g/dL (32-36)
[2021-05-07] MEDS ORDERED: miSOPROStoL 50 MCG TAB PO ONE (21:24)
[2021-05-07 22:30] LABS: Hematocrit (blood only) 36.3 % (37-47); Hemoglobin 12.3 g/dL (12.0-16.0); Mean Corpuscular Hemoglobin 31.2 pg (25-34); Mean Corpuscular Volume 92.1 fL (80-100); RDW Coefficient of Variation 13.5 % (11.5-14.5); RDW Standard Deviation 45.7 fL (36.4-46.3); Red Blood Count 3.94 M/uL (4.2-5.4); White Blood Count 8.45 K/uL (4.8-10.8)
[2021-05-07 22:37] LABS: Mean Platelet Volume 11.2 fL (7.4-10.4); Platelet Count 224 K/uL (130-400)
[2021-05-07 22:49] LABS: Albumin Level 2.4 gm/dl (3.4-5.0); BUN Creatinine Ratio 17.1 (10-20); Calcium 8.7 mg/dl (8.5-10.1); Creatinine Clr Calc Pharmacy 124.9 ml/min; Est GFR (African American) 138.8 ml/min; Est GFR (Non-African American) 119.7 ml/min; Potassium 3.1 mmol/L (3.5-5.1)
[2021-05-07 22:51] LABS: Albumin Globulin Ratio 0.7 (0.9-2); Bilirubin,Total 0.3 mg/dl (0.2-1); Globulin 3.6 gm/dl (2.5-4.0)
[2021-05-08] MEDS: BUTORPHANOL TARTRATE 1 MG/ML VIAL IV PRN ×5 (00:38→13:20)
[2021-05-08] MEDS ORDERED: MoRPHine SULFATE 4 MG/ML 1 ML CARP\\VIAL IV STA (01:50)
[2021-05-08] MEDS: LACTATED RINGER'S 1,000 ML IV PRN ×3 (02:15→17:19)
[2021-05-08] MEDS ORDERED: DINOPROSTONE 10 MG INSERT PV ONE (04:31)
[2021-05-08] MEDS ORDERED: PENICILLIN G POTASSIUM 6 MU in DEXTROSE 5% 250 ML IV PRN (09:35)
[2021-05-08] MEDS: LABETALOL HCL 100 MG TAB PO SCH ×3 (10:04→22:20)
[2021-05-08] MEDS ORDERED: ePHEDrine sulfate 50 MG/ML AMP ONE (15:24)
[2021-05-08] MEDS ORDERED: SODIUM CHLORIDE 0.9% INJ 10 ML VIAL ONE (15:24)
[2021-05-08] MEDS ORDERED: fentaNYL citrate 100 MCG/2 ML VIAL ONE (15:25)
[2021-05-08] MEDS ORDERED: fentaNYL 2MCG/ML ROPIVACAINE 1.25MG/ML 100 ML BAG EPI ONE (15:25)
[2021-05-08] MEDS ORDERED: BUPIVACAINE 0.25% 30 ML VIAL ONE (15:25)
[2021-05-08] MEDS ORDERED: NALOXONE HCL 0.4 MG/1 ML VIAL/CARP IV PRN (16:03)
[2021-05-08] MEDS ORDERED: NALBUPHINE HCL INJ 10 MG/ML AMP IV PRN (16:03)
[2021-05-08] MEDS ORDERED: ONDANSETRON INJ 2 MG/ML 2 ML VIAL IV PRN (16:03)
[2021-05-08] MEDS ORDERED: NALOXONE HCL 1 MG in SODIUM CHLORIDE 0.9% 1000ML 1,000 ML IV PRN (16:03)
[2021-05-08] MEDS ORDERED: diphenhydrAMINE 50 MG/ML VIAL IV PRN (16:03)
[2021-05-08] MEDS ORDERED: ePHEDrine sulfate 50 MG/ML AMP IV PRN (16:03)
--- NOTE | 2021-05-08 16:03 | Anesthesiology Consultation ---
Date of Service May 08, 2021 Assessment & Plan (1) Encounter for pre-operative examination: Chart Review Chart Review: Patient NOT seen in Pre Admission Testing and Acceptable Risk for Labor Epidural Consults Requested none ASA ASA2 Proposed Anesthesia Anesthesia Type: Labor Epidural Risk / Benefits Reviewed With: PT / POA / Parent / Guardian, Accepts Plan and Informed Consent Obtained History Height/Weight Height: 5 ft 3 in Weight: 75.296 kg Allergies Allergy/AdvReac Type Severity Reaction Status Date / Time latex Allergy Intermediate Hives Verified 05/07/21 20:40 oxycodone [From Percocet] Allergy Intermediate Hives Verified 05/07/21 20:40 nickel Allergy Mild Rash Verified 05/07/21 20:40 Medications Home Medications Medication Instructions Recorded Confirmed Last Taken aspirin 81 mg tablet,delayed 81 mg PO DAILY 10/11/20 05/07/21 05/07/21 release labetalol 100 mg tablet 100 mg PO BID 05/07/21 05/07/21 05/07/21 09:00 Active Medications Generic Name Dose Route Start Last Admin Trade Name Freq PRN Reason Stop Dose Admin Butorphanol Tartrate 1 mg 05/07/21 21:31 05/08/21 13:20 Butorphanol Tartrate 1 Mg/Ml Vial IV 06/06/21 21:30 1 mg Q1HWA PRN Administration Pain Lactated Ringer's 1,000 mls @ 125 mls/hr 05/07/21 20:38 05/08/21 15:20 Lr IV 05/09/21 20:37 999 mls/hr .Q8H PRN Administration L&D Protocol Protocol Labetalol HCl 100 mg 05/08/21 09:00 05/08/21 15:07 Labetalol Hcl 100 Mg Tab PO 06/07/21 08:59 100 mg TID NANDINI Administration Past Medical History Medical History Infertility Exercise / Class Metabolic Activity II 4-5 Yardwork/Stairs/Walk up hill Past Family History Family History Other No family history of adverse response to anesthesia Past Surgical History Surgical History History of appendectomy History of D&C History of tonsillectomy Past Anesthesia History No Hx of Anesthesia Complications and No Family Hx of Anesthesia Complications History of PONV No Hx of PONV and No Hx of Motion Sickness Social History Smoking Status: Never smoker tobacco type: cigarettes Hx Alcohol Use: No Alcohol type: wine alcohol intake frequency: a few times a week Hx Substance Use: No substance use type: does not use Physical Exam Vital Signs Last Vital Signs Temp 36.6 C 05/08/21 12:45 Pulse 75 05/08/21 16:01 Resp 18 05/08/21 13:10 BP 132/67 05/08/21 16:01 Pulse Ox 97 05/08/21 16:01 ENMT Mouth: no dentition abnormality Thyromental Distance: > or= 3.5 Finger Breadths Mallampati Class: II Neck normal visual inspection Respiratory normal respiratory effort Auscultation: lungs clear to auscultation bilaterally Cardiovascular Rate/Rhythm: regular rate and regular rhythm Psychiatric Orientation: alert Testing Laboratory Results 05/07/21 20:46 05/07/21 22:07
[2021-05-08] MEDS ORDERED: OXYTOCIN 30 UNITS/500 ML BAG IV PRN (16:17)
[2021-05-08] MEDS: fentaNYL 2MCG/ML ROPIVACAINE 1.25MG/ML 100 ML BAG EPI PRN ×3 (19:07→23:05)
[2021-05-08] MEDS ORDERED: ACETAMINOPHEN 325 MG TAB PO PRN (20:19)
[2021-05-08] MEDS: PENICILLIN G POTASSIUM 3 MU in DEXTROSE 5% 100 ML IV PRN (22:29)
[2021-05-08] MEDS: FAMOTIDINE 20 MG TAB PO SCH (22:39)
[2021-05-09] MEDS: LACTATED RINGER'S 1,000 ML IV PRN (03:01)
[2021-05-09] MEDS: PENICILLIN G POTASSIUM 3 MU in DEXTROSE 5% 100 ML IV PRN (03:12)
[2021-05-09] MEDS ORDERED: METHYLERGONOVINE MALEATE 0.2 MG/ML AMP IM ONE (04:15)
[2021-05-09] MEDS ORDERED: HYDROCORTISONE ACETATE 25 MG SUPP PR PRN (04:15)
[2021-05-09] MEDS ORDERED: DIPHTHERIA/TETANUS/PERTUSSIS 0.5 ML SYR/VIAL IM ONE (04:15)
[2021-05-09] MEDS ORDERED: SUPERCREAM 0.870% 15 GM JAR EXT PRN (04:15)
[2021-05-09] MEDS ORDERED: ACETAMINOPHEN 325 MG TAB PO PRN (04:15)
[2021-05-09] MEDS ORDERED: ACETAMINOPHEN W/CODEINE #3 1 TAB PO PRN (04:15)
[2021-05-09] MEDS ORDERED: oxyCODONE/ACETAMINOPHEN 5mg/325mg TAB PO PRN (04:15)
[2021-05-09] MEDS ORDERED: BENZOCAINE 20% AER SPR 82.5 GM CAN EXT PRN (04:15)
[2021-05-09] MEDS ORDERED: OXYTOCIN 30 UNITS/500 ML BAG IV PRN (04:15)
[2021-05-09] MEDS ORDERED: miSOPROStoL 200 MCG TAB PR ONE (04:15)
[2021-05-09] MEDS ORDERED: BENZOCAINE 20% AER SPR 82.5 GM CAN EXT ONE (04:16)
[2021-05-09] MEDS: IBUPROFEN 600 MG TAB PO PRN ×3 (04:57→21:39)
[2021-05-09] MEDS: traMADol HCL 50 MG TABLET PO PRN (04:58)
--- NOTE | 2021-05-09 06:01 | Delivery Summary ---
DELIVERY NOTE DATE OF SERVICE: 05/09/2021. The patient was admitted for induction at about 37 weeks 4 days. She developed hypertension, was doc umented on several visits. She was also on labetalol 100 mg 3 times a day. Induction was done with p.o. Cytotec. She was given one dose and then that was followed up by Cervidil tape and then that wa s followed by epidural and IV Pitocin. The head was low on induction. She went to full dilatation, brought the head right down, pushed for over 3 hours, was unable to crown the head. It was at about a +2 position station ibarra. We used a Brennan forceps were placed in direct occiput anterior position over an intact perineum, 90-second pull and the head delivered. Forceps were then removed. The inf ant was suctioned through the mouth and the nose. Shoulders delivered without difficulty. Cord bloo d was stripped and cord was clamped and cut. Cord blood was then taken. Placenta was removed manual ly with IV Pitocin running. She was eventually given IM Methergine and rectal Cytotec. Fourth-degree laceration was repaired anatomically. First, the rectal sphincter capsule was repaired in a circula r fashion with 2-0 Vicryl. The 2 ends of the rectal sphincter were grasped with an Allis and capsule was repaired around the muscle. Then, the vaginal mucosa was approximated. [place] was identified. Th e vaginal mucosa was approximated out and to beyond the hymenal ring with a continuous Vicryl. A j carlos p suture was used to approximate the bulbocavernosus muscle. Two separate deep sutures were used to a pproximate the perineal body and then a running subcuticular suture was used to approximate the perin eal skin edges. Following this, rectal Cytotec was placed. Rectal exam revealed no stitches through the rectal mucosa. The patient tolerated the procedure well and left the OR in good condition. Est imated blood loss was 200 mL. Job ID: [id number]
[2021-05-09] MEDS: LABETALOL HCL 200 MG TAB PO SCH ×3 (06:15→21:38)
[2021-05-09] MEDS ORDERED: Nursing to Pharmacy Communication SCH (06:15)
--- NOTE | 2021-05-09 07:06 | Anesthesia Procedure Note ---
Date of Service May 09, 2021 Anesthesia Post Epidural Note Vital Signs Vital Signs: Temp Pulse Resp BP Pulse Ox 98.6 F 62 18 175/98 H 98 05/09/21 04:30 05/09/21 06:38 05/09/21 06:15 05/09/21 06:38 05/09/21 03:46 Pain Intensity Abdomen: Pain Intensity: 0 Bilateral Perineal: Pain Intensity: 4 Notes Mental Status: alert / awake / arousable and participated in evaluation Nausea / Vomiting: adequately controlled Pain: adequately controlled Airway Patency, RR, SpO2: stable & adequate BP & HR: stable & adequate Hydration State: stable & adequate Neuraxial Anesthesia: was administered and sensory block is resolving Anesthetic Complications: no major complications apparent and Pt Satisfied with anesthetic care Epidural: Removed without complications and With tip intact
[2021-05-09] MEDS: PRENATAL VITAMIN 1 TAB PO SCH (08:31)
[2021-05-09] MEDS: DOCUSATE SODIUM 100 MG CAP PO SCH ×2 (08:31→21:38)
[2021-05-09] MEDS: FAMOTIDINE 20 MG TAB PO SCH ×2 (08:32→21:38)
[2021-05-09] MEDS ORDERED: LABETALOL HCL 100 MG TAB PO SCH (09:00)
[2021-05-10] MEDS: IBUPROFEN 600 MG TAB PO PRN ×2 (03:06→08:59)
[2021-05-10 07:16] LABS: Hematocrit (blood only) 36.3 % (37-47); Hemoglobin 12.4 g/dL (12.0-16.0); Mean Corpuscular Hemoglobin 32.1 pg (25-34); Mean Corpuscular Hgb Conc 34.2 g/dL (32-36); Mean Platelet Volume 11.8 fL (7.4-10.4); Platelet Count 202 K/uL (130-400); RDW Coefficient of Variation 13.6 % (11.5-14.5); RDW Standard Deviation 46.5 fL (36.4-46.3); Red Blood Count 3.86 M/uL (4.2-5.4); White Blood Count 16.07 K/uL (4.8-10.8)
[2021-05-10] MEDS: FAMOTIDINE 20 MG TAB PO SCH (09:02)
[2021-05-10] MEDS: PRENATAL VITAMIN 1 TAB PO SCH (09:02)
[2021-05-10] MEDS: DOCUSATE SODIUM 100 MG CAP PO SCH (09:02)
[2021-05-10] MEDS: LABETALOL HCL 200 MG TAB PO SCH ×2 (09:03→14:14)
--- NOTE | 2021-05-10 10:14 | Obstetrical Progress Note ---
Date of Service May 10, 2021 Assessment & Plan (1) Normal course: PPD #1 S/p Forcep deliver with 4th degree tear pt doing well anticipate disch today Subjective Ambulation: ambulating normally Voiding: no voiding problems Passing Gas:: Yes Diet Tolerance:: regular diet Lochia:: Small Feeding Type:: breast feeding Review of Systems All systems reviewed & are unremarkable except as noted in HPI & below Physical Exam Constitutional WD/WN, vitals as above well developed and well nourished Eyes PERRL, conjunctivae normal, anicteric sclerae Neck trachea midline, no thyromegaly Respiratory normal respiratory effort, lungs clear to auscultation Auscultation: no crackles, no rales and no wheezes Cardiovascular RRR, no murmur, no edema Gastrointestinal (Abdomen) normal bowel sounds, soft, nontender, no hepatosplenomegaly Uterus is below umbilicus Musculoskeletal no cyanosis or clubbing, extremities motor strength 5/5 Skin no rashes, warm and dry Neurologic patellar DTR's 2+ bilat, sensation intact Psychiatric A+Ox3, euthymic affect Genitourinary normal external appearance Results & Data ([facility]) Vital Signs (Past 12 Hours) Vital Signs Temp Pulse Resp BP Pulse Ox 05/10/21 07:30 36.8 C 68 20 150/92 H 98 05/10/21 03:00 36.4 C L 68 16 147/91 H 96 05/09/21 23:15 36.7 C 66 16 149/87 H 97
[2021-05-10] MEDS: traMADol HCL 50 MG TABLET PO PRN (12:14)
[2021-05-10] MEDS ORDERED: bisacodyL 5 MG TABEC PO SCH (20:00)
[2021-05-11] MEDS ORDERED: bisacodyL 10 MG SUPP PR PRN (04:15)
== END 2021-05-10 18:10 | disposition home or self-care (01) | DRG 768 ==
LOC: 4S1 20:05 → 4S2 05-09 06:45